=== PATIENT | female | born 1995 | race Caucasian/White ===

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

== ENCOUNTER 2017-07-12 13:04 | Emergency (ER) | payer BC, MEDICAID ==
[2017-07-12 14:53] LABS: APPEARANCE HAZY (CLEAR); BILIRUBIN NEGATIVE (NEGATIVE); COLOR YELLOW (YELLOW); GLUCOSE NEGATIVE (NEGATIVE); HCG URINE NEGATIVE (NEGATIVE); KETONE NEGATIVE (NEGATIVE); NITRITE NEGATIVE (NEGATIVE); PROTEIN NEGATIVE (NEGATIVE); SPECIFIC GRAVITY 1.015 (1.005-1.020); UROBILINOGEN NORMAL (NORMAL)
== END 2017-07-12 16:15 | disposition home or self-care (01) ==
LOC: D.ER 13:04
PROVIDERS: Family Medicine
DX: R10.30 Lower abdominal pain, unspecified (principal); J45.909 Unspecified asthma, uncomplicated; F17.200 Nicotine dependence, unspecified, uncomplicated